=== PATIENT | female | born 1995 | race Caucasian/White ===

== ENCOUNTER 2017-06-05 12:57 | Emergency (ER) | payer SELFPAY ==
[~2017-06-05] VITALS: Ht 160 cm; Wt 67.2 kg
[2017-06-05 13:55] LABS: BASOPHILS # (AUTO) 0.12 x10^3/uL (0-0.3); BASOPHILS % (AUTO) 1 % (0-1); EOSINOPHILS # (AUTO) 0.02 x10^3/uL (0-0.8); EOSINOPHILS % (AUTO) 0 % (1-7); LYMPHOCYTES # (AUTO) 2.93 x10^3/uL (1-6.1); LYMPHOCYTES % (AUTO) 36 % (22-44); MD NO; MEAN CORPUSCULAR HEMOGLOBIN 27.3 pg (27.0-34.8); MEAN CORPUSCULAR VOLUME 82.9 fL (80-100); MEAN PLATELET VOLUME 9.2 fL (7.4-10.4); MONOCYTES # (AUTO) 0.31 x10^3/uL (0-1.4); MONOCYTES % (AUTO) 4 % (2-9); NEUTROPHILS # (AUTO) 4.83 x10^3/uL (1.8-8.0); NEUTROPHILS % (AUTO) 59 % (42-75); PLATELET COUNT 301 x10^3/uL (130-400); RED BLOOD COUNT 4.93 x10^6/uL (3.82-5.3); RED CELL DISTRIBUTION WIDTH 15.8 % (9.6-15.2)
[2017-06-05 14:06] LABS: ALANINE AMINOTRANSFERASE 15 U/L (12-78); ALBUMIN 4.5 g/dL (3.4-5.0); ANION GAP 12 mmol/L (5-15); CHLORIDE 105 mmol/L (98-107); CREATININE 0.88 mg/dL (0.55-1.02)
[2017-06-05 14:11] LABS: ALKALINE PHOSPHATASE 81 U/L (45-117); BILIRUBIN,TOTAL 0.3 mg/dL (0.2-1.0); FREE T4 (FREE THYROXINE) 0.29 ng/dL (0.76-1.46); TOTAL PROTEIN 8.8 g/dL (6.4-8.2)
[2017-06-05] MEDS ORDERED: LEVO125T5 PO (14:28)
[2017-06-05] MEDS ORDERED: SODIUM CHLORIDE FLUSH 10ML SYR IVF ONE (14:30)
[2017-06-05] MEDS ORDERED: KETOROLAC 30 MG/1 ML IVPush ONE (14:30)
[2017-06-05] MEDS ORDERED: METOCLOPRAMIDE 5 MG/ML, 2ML IVPush ONE (14:30)
[2017-06-05] MEDS ORDERED: KETOROLAC 30 MG/1 ML ONE (14:52)
[2017-06-05] MEDS ORDERED: METOCLOPRAMIDE 5 MG/ML, 2ML ONE (14:53)
[2017-06-05] MEDS ORDERED: LORazepam 2 MG/ML, 1ML ONE (15:13)
[2017-06-05] MEDS ORDERED: LEVOTHYROXINE 125 MCG TABLET PO ONE (15:30)
[2017-06-05] MEDS ORDERED: LORazepam 2 MG/ML, 1ML IVPush ONE (15:30)
[2017-06-05 15:35] VITALS: BP 114/59
== END 2017-06-05 15:37 | disposition home or self-care (01) ==
LOC: ED 15:25
DX: E89.0 Postprocedural hypothyroidism (principal); F41.1 Generalized anxiety disorder; E05.01 Thyrotoxicosis with diffuse goiter with thyrotoxic crisis or storm
CPT/HCPCS: 36415; 80053; 84439; 84443; 84703; 85025; 93005; 96374; 96375; 99285; J1885; J2765